=== PATIENT | female | born 1945 | race Caucasian/White ===

== ENCOUNTER → 2019-01-07 11:19 | Outpatient (CLI) | payer MEDICARE, SELFPAY ==
--- NOTE | 2019-01-07 11:44 | XR_ITS ---
XR hip RT 2-3V w/pelvis HISTORY: ITS.REASON: RT HIP PAIN ORDERING PHYSICIAN: Regina Esteves APRN PATIENT AGE: 73 years COMPARISON: None FINDINGS: No fracture or dislocation is evident. There are minimal osteoarthritic changes with minimal osteophyte formation of the acetabulum. IMPRESSION: Minimal osteoarthritic change
--- NOTE | 2019-01-07 11:44 | XR_ITS ---
XR hip LT 2-3V w/pelvis HISTORY: ITS.REASON: LEFT HIP PAIN ORDERING PHYSICIAN: Regina Esteves APRN PATIENT AGE: 73 years COMPARISON: None FINDINGS: There is a left femoral decompression screw present in the bony sideplate. No acute fracture or dislocation. No lytic or blastic change. No significant degenerative change. IMPRESSION: Prior ORIF left hip with gamma nail and proximal femoral sideplate with good alignment and no acute finding
== END ==
PROVIDERS: PCP Nurse Practitioner Family; Visit Provider Nurse Practitioner Family
DX: M25.552 Pain in left hip (principal); M25.551 Pain in right hip
CPT/HCPCS: 73502

== ENCOUNTER → 2019-01-09 13:33 | Outpatient (CLI) | payer MEDICARE, SELFPAY ==
--- NOTE | 2019-01-09 13:35 | MR_ITS ---
MR lumbar spine wo con, MR 3-d myelogram/MRCP HISTORY: LBP. Bilateral leg pain, numbness, and tingling. PT fell [id number] ago. ITS.REASON: LOW BACK PAIN ORDERING PHYSICIAN: Regina Esteves APRN PATIENT AGE: 73 years Comparison: None TECHNIQUE: Standard multiplanar multiecho sequences are performed without contrast. 3-D MIP and myelographic images are also rendered and reviewed FINDINGS: Normal alignment. The spinal cord ends at the L1-L2 level. L1-L2 and L2-L3 show mild degenerative disc disease. L3-L4: Minimal bulging of the disc in the left foraminal region with minimal left foraminal narrowing. L4-5: Minimal concentric bulging disc with minimal central disc protrusion along with mild facet and ligamentum flavum hypertrophy with mild bilateral foraminal narrowing. L5-S1: Mild facet and ligamentum flavum hypertrophy with a small amount fluid in the right facet joint at L5-S1 with minimal bilateral foraminal narrowing. No disc herniation or canal stenosis. IMPRESSION: 1. Mild lumbar spondylosis with mild degenerative changes and minimal bulging discs as described above along with mild facet and ligamentum hypertrophy with mild foraminal narrowing. There is minimal central disc protrusion at L4-L5 2. No disc herniation or canal stenosis
== END ==
LOC: RAD 13:33
PROVIDERS: PCP Nurse Practitioner Family; Visit Provider Nurse Practitioner Family
DX: M54.5 Low back pain (principal); M25.552 Pain in left hip; M25.561 Pain in right knee
CPT/HCPCS: 72148; 76376

== ENCOUNTER 2019-03-13 10:00 | Outpatient (RCR) | payer MEDICARE, SELFPAY | END 2019-03-27 11:27 | disposition home or self-care (01) | LOC: PT.CARL 10:00 | PROVIDERS: PCP Nurse Practitioner Family; Visit Provider Nurse Practitioner Family | DX: M54.5 Low back pain (principal) | CPT/HCPCS: 97012; 97014; 97110; 97140; 97163; G0283 ==

== ENCOUNTER → 2020-12-01 09:21 | Outpatient (CLI) | payer MEDICARE, SELFPAY ==
--- NOTE | 2020-12-01 09:29 | XR_ITS ---
PROCEDURE: XR HIP LT 2-3V W/PELVIS CLINICAL INDICATION: PAIN LT HIP COMPARISON: No exams were available for comparison FINDINGS: There has been placement of a dynamic screw in the left hip with lateral bone plate. No acute fracture. No evidence of dislocation. No significant arthritic change apparent. Multiple pelvic phleboliths and vascular calcification noted IMPRESSION: No acute finding. Dynamic screw present within the left femoral neck Dictated by: Abiodun Burton MD 12/01/2020 10:13 Abiodun Burton MD in [place] 12/01/2020 10:13
== END ==
PROVIDERS: PCP Nurse Practitioner Family; Visit Provider Nurse Practitioner Family
DX: M25.552 Pain in left hip (principal)
CPT/HCPCS: 73502

== ENCOUNTER → 2021-02-11 07:37 | Outpatient (CLI) | payer MEDICARE, SELFPAY ==
[2021-02-11] VITALS (8 sets, daily range): BP systolic 99–120; BP diastolic 51–60; PULSE 56–64; RESP 16–18; TEMP 37.6–37.8; O2SAT 92–95
== END ==
PROVIDERS: PCP Nurse Practitioner Family; Visit Provider Nurse Practitioner Family
DX: U07.1 COVID-19 (principal)
CPT/HCPCS: 96365

== ENCOUNTER 2023-07-31 12:30 | Outpatient (CLI) | payer MEDICARE, SELFPAY ==
--- NOTE | 2023-07-31 | CA_ITS ---
FINAL REPORT TECHNIQUE: Compression dillard scale and Doppler evaluation CLINICAL HISTORY: Left leg pain and edema, no known trauma, hx of left hip surgery 1992, HTN, obesity. COMPARISON: None FINDINGS: Femoral and popliteal veins show normal compressibility and flow. Visualized portion of the calf veins are patent by Doppler exam. IMPRESSION: No evidence of left lower extremity deep venous thrombosis Reviewed, Interpreted and Dictated by Errol Finch MD Transcribed by Yolanda Tolbert Authenticated and . [facility]
== END 2023-07-31 23:59 ==
PROVIDERS: PCP Nurse Practitioner Family; Visit Provider Nurse Practitioner Family
DX: M79.605 Pain in left leg (principal)
CPT/HCPCS: 93971

== ENCOUNTER 2023-11-16 08:07 | Outpatient (CLI) | payer MEDICARE, SELFPAY ==
--- NOTE | 2023-11-16 08:09 | CA_ITS ---
FINAL REPORT TECHNIQUE: Color Doppler, duplex Doppler and compression sonography of the left lower extremity deep venous systems was performed. CLINICAL HISTORY: PAIN/REDNESS LLE,HX CELLULITIS,THROMBOPHELBITIS,NKI FINDINGS: There is no evidence of deep venous thrombosis from the level of the groin to the calf. The veins are patent and compressible. IMPRESSION: No evidence of deep venous thrombosis left lower extremity. Reviewed, Interpreted and Dictated by Davin Quintanilla III, MD Transcribed by Vee Rojas Authenticated and [facility]
== END 2023-11-16 23:59 | disposition home or self-care (01) ==
LOC: RT 08:07
PROVIDERS: PCP Nurse Practitioner Family; Visit Provider Nurse Practitioner Family
DX: M79.605 Pain in left leg (principal); I80.3 Phlebitis and thrombophlebitis of lower extremities, unspecified
CPT/HCPCS: 93971

== ENCOUNTER 2025-05-16 07:54 | Outpatient (CLI) | payer MEDICARE, SELFPAY ==
--- NOTE | 2025-05-16 07:57 | MR_ITS ---
FINAL REPORT TECHNIQUE: Multiplanar MR without gadolinium enhancement CLINICAL HISTORY: BACK PAIN AFFECTING RLE (LT HIP HARDWARE). RIGHT HIP PAIN. RIGHT LEG PAIN, NUMBNESS AND TINGLING. NO INJURY OR TRAUMA COMPARISON: 01/09/2019 FINDINGS: Sagittal images show normal vertebral height. Alignment is normal. There is a hemangioma in the L2 vertebral body. T12-L1: Unremarkable L1-2: A minimal annular bulge is present without central canal stenosis. L2-3: A minimal annular bulge is present without central canal stenosis. L3-4: A mild annular bulge is present along with facet arthropathy. L4-5: A mild annular bulge is present with facet arthropathy, ligamentum flavum hypertrophy, mild central canal stenosis and mild bilateral neural foraminal narrowing. These findings are worse than seen on the prior exam. L5-S1: There is a mild annular bulge with moderate facet arthropathy, mild bilateral right greater than left neural foraminal narrowing, worse than seen on the prior exam. IMPRESSION: Degenerative change most pronounced in the lower lumbar spine, with the L4-5 and L5-S1 levels demonstrating worsening degenerative change when compared to the prior exam of 2019. Reviewed, Interpreted and Dictated by Errol Finch MD Transcribed by Aleyda Olivera Authenticated and [facility]
--- OUTSIDE RECORDS SUMMARY | 2025-05-16 07:57 | XMS_ITS | Continuity of Care Document ---
Author Organization [place] - [facility]., [facility] Address [address] [place] [phone] Assessment Encounter Date Assessment Date Assessment LastModified by Organization Details LastModified Time 04/25/2025 04/25/2025 Santa Oropeza presented for follow-up of peripheral vascular disease with persistent bilateral leg swelling (left worse than right) despite spironolactone 50mg, which replaced hydrochlorothiazide due to declining kidney function. She also reported right ear eczema with itching and crusting. Medical history includes hypertension and diabetes mellitus (A1c 6.1). Treatment plan included continuing spironolactone, adding furosemide 20mg PRN for swelling, using compression stockings, prescribing triamcinolone cream for ears, and recommending Centrum Silver Women's daily. Metoprolol was continued at the reduced dose. Not available 04/25/2025 18:09:58 Plan of Treatment Reminders Order Date Submit Date Provider Last Modified By Organization Details Last Modified Time Details Appointments ANNUAL EXAM 2025 09:00A Christiano York APRN Not available Not available Not available Lab None recorded. Referral None recorded. Procedures None recorded. Surgeries None recorded. Imaging None recorded. Medication Orders furosemid e 20 mg tablet 2024 [facility], [address] [place] [address], [id number], 04/25/2025 11:58:02 triamcino lone acetonide 0.1 % topical cream 2024 [facility], [address] [place] [address], [id number], 04/25/2025 13:23:31 Patient TargetsNo targets recorded. Patient InstructionsNo instructions recorded. Reason for Referral None Reported. Problems Name Problem SNOMED Code Status Onset Date Resolution Date Notes Provider Name and Address Organization Details Recorded Time Hyperten sive disorder 61184645 Completed 201609/22/2016 Problem Code: I10; Problem Code Type: ICD-10; Not Available [facility] 22:26:22 Benign essentia l hyperten giovanna 9093946 Active 2016 Problem Code: 401.1; Problem Code Type: ICD-9; Not Available [facility] 22:26:29 Vitamin B deficien cy 69235467 Active 2016 Problem Code: E53.9; Problem Code Type: ICD-10; Not Available [facility] 22:26:22 Vitamin D deficien cy 42764544 Active 2016 Problem Code: E55.9; Problem Code Type: ICD-10; Not Available [facility] 22:26:22 Moderate major depressi on, single episode 03045846 Completed 201606/12/2018 Problem Code: F32.1; Problem Code Type: ICD-10; Not Available [facility] 22:26:22 Moderate recurren t major depressi on 73940522 Active 2016 Problem Code: F33.1; Problem Code Type: ICD-10; Not Available [facility] 22:26:22 Mixed urinary incontin ence 449295747 Completed 201604/08/2017 Problem Code: N39.46; Problem Code Type: ICD-10; Not Available [facility] 22:26:24 Localize d edema 955516364 Completed 201602/21/2017 Problem Code: R60.0; Problem Code Type: ICD-10; Not Available [facility] 22:26:25 Depressi ve disorder 89908043 Active 2016 Problem Code: 311; Problem Code Type: ICD-9; Not Available [facility] 2 22:26:28 Edema 241288998 Completed 201602/21/2017 Problem Code: 782.3; Problem Code Type: ICD-9; Not Available [facility] 2 22:26:29 Dysthymi a 95121116 Completed 201608/15/2019 Problem Code: R53.81; Problem Code Type: ICD-10; Not Available [facility] 22:26:24 Acute bronchit is 76002818 Completed 201711/20/2017 Problem Code: J20.9; Problem Code Type: ICD-10; Not Available [facility] 22:26:23 Cough 67604696 Completed 201710/05/2017 Problem Code: R05; Problem Code Type: ICD-10; Not Available [facility] 22:26:29 Acute sinusiti s 52396770 Completed 201710/16/2017 Problem Code: J01.90; Problem Code Type: ICD-10; Not Available [facility] 22:26:23 Allergic rhinitis caused by pollen 45986454 Completed 201702/20/2018 Problem Code: J30.1; Problem Code Type: ICD-10; Not Available [facility] 22:26:23 Heartbur n 40629162 Completed 201701/05/2018 Problem Code: R12; Problem Code Type: ICD-10; Not Available [facility] 22:26:24 Mixed hyperlip idemia 578709194 Active 2017 Problem Code: E78.2; Problem Code Type: ICD-10; Not Available [facility] 22:26:22 Hyperten sive disorder 37749553 Active 2017 Problem Code: I10; Problem Code Type: ICD-10; Not Available [facility] 22:26:23 Mixed urinary incontin ence 258992037 Completed 201708/11/2018 Problem Code: N39.46; Problem Code Type: ICD-10; Not Available [facility] 09/05/202 2 22:26:28 Gastroes ophageal reflux disease without esophagi tis 330632726 Active 2018 Not Available [facility] 2 22:26:23 Pain of left hip joint 68008101339 9100 Completed 201808/15/2019 Problem Code: M25.552; Problem Code Type: ICD-10; Not Available [facility] 2 22:26:23 Low back pain 076779894 Completed 201808/15/2019 Problem Code: M54.5; Problem Code Type: ICD-10; Jacquelin York APRN [address] [place], [address] , [employer] 5 14:47:30 Idiopath ic osteoart hritis 592033371 Active 2018 Problem Code: M16.11; Problem Code Type: ICD-10; Not Available [facility] 2 22:26:23 Influenz a vaccine needed 78643824428 06 Completed 201912/27/2021 Problem Code: Z23; Problem Code Type: ICD-10; ARACELY enriquez, [employer] 3 11:24:26 Body mass index 30+ - obesity 769699180 Completed 201912/27/2021 Problem Code: Z68.36; Problem Code Type: ICD-10; Not Available [facility] 2 22:26:27 Hypergly cemia 60594149 Active 2019 Problem Code: R73.9; Problem Code Type: ICD-10; Not Available [facility] 2 22:26:25 Prediabe harpreet 129238393 Active 2019 Problem Code: R73.03; Problem Code Type: ICD-10; Jacquelin York APRN [address] [place], [address] , [employer]. 5 10:48:42 Trochant mayur bursitis of left hip 50000266689 9103 Completed 202012/27/2021 Not Available [facility] 2 22:26:24 General examinat ion of patient Active 2020 Not Available [facility] 22:26:26 Body mass index 30+ - obesity 449460239 Active 2020 Problem Code: Z68.36; Problem Code Type: ICD-10; Not Available [facility] 22:26:27 Acute left otitis media 710410144 Active 2024 Jacquelin York APRN [address] [place] [address], [phone] , [employer] 17:43:39 Acute otitis externa 40906538 Active 2024 Jacquelin York APRN [address] [place] [address], [address] , [employer] 17:43:47 Peripher al vascular disease 776993142 Active 2024 Jacquelin York APRN [address] [place] [address], [address] , [employer] 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 17:02:20 Low back pain 495450780 Active 2024 Problem Code: M54.5; Problem Code Type: ICD-10; Jacquelin York APRN [address] [place] [address], [phone] , [employer] 14:47:30 Notes:Some problems listed i n Document: #[id number] could not be added to this patient's chart. Please review this document and add these problems to the patient's chart manually as needed. Problem Notes None recorded. Procedures Surgical History Date Name Laterality Status Provider Name and Address Organization Details Recorded Time 3 I&D completed Jacquelin York APRN [address] [facility], [place], [address], [facility] [employer] 08/19/2022 11:49:50 2 cataract surgery completed Not Available [facility] 03/08/2022 22:56:11 Imaging Results None recorded. Procedure Notes None recorded. Medical Equipment None Reported. Allergies No known drug allergies Medications Name Sig Start Date Stop Date Status Note LastModified by Organization Details LastModified Time amoxicillin 500 mg capsule TAKE ONE CAPSULE BY MOUTH every EIGHT hours FOR SEVEN DAYS FOR ear infection 01/22 completed Not Available Not Available Not Available promethazin e-DM 6.25 mg-15 mg/5 mL oral syrup take 5 mls by mouth every 6 hours as needed 03/15 completed Not Available Not Available Not Available neomycin-po lymyxin-hyd rocort 3.5 mg/mL-10,00 0 unit/mL-1 % ear solution INSTILL 4 DROPS INTO AFFECTED EAR(S) BY OTIC ROUTE 3 TIMES PER DAY 01/22 completed Not Available Not Available Not Available Depo-Medrol 40 mg/mL suspension for injection Take 1 mL by injection route. 05/12 completed Not Available Not Available Not Available citalopram 40 mg tablet TAKE 1 TABLET BY MOUTH ONCE DAILY 02/01 completed Not Available Not Available Not Available cetirizine 10 mg tablet Take 1 tablet(s) by mouth daily 02/20 completed Not Available Not Available Not Available oxybutynin chloride ER 10 mg tablet,exte nded release 24 hr Take 1 tablet every day by oral route. 2024 active Not Available Not Available Not Avai lable tizanidine 4 mg tablet 1 po q hs 05/04 completed Not Available Not Available Not Available metoprolol succinate ER 50 mg tablet,exte nded release 24 hr TAKE 1 TABLET BY MOUTH DAILY 2024 active Not Available Not Available Not Avai lable hydrocodone 5 mg-acetamin ophen 325 mg tablet TAKE 1 TABLET BY MOUTH every 8 hours NEEDED FOR SEVERE pain 05/12 completed Not Available Not Available Not Available meloxicam 15 mg tablet TAKE 1 TABLET BY MOUTH EVERY DAY NEEDED FOR sciatica active Not Available Not Available No t Available Paxil 20 mg tablet Take 1 tablet(s) by mouth daily 02/16 completed Not Available Not Available Not Available Medrol (Gallo) 4 mg tablets in a dose pack take by oral route as directed per package instructi ons 2024 active Not Available Not Available Not Avai lable Aplisol 5 tub. unit/0.1 mL intradermal injection solution Inject 0.1 mL by intraderm al route. 11/19 completed Not Available Not Available Not Available metoprolol succinate ER 100 mg tablet,exte nded release 24 hr Take 1 tablet every day by oral route. 01/22 completed Not Available Not Available Not Available valsartan 80 mg tablet TAKE 1 TABLET BY MOUTH DAILY 08/20 completed Not Available Not Available Not Available dextrometho rphan-guaif enesin 10 mg-100 mg/5 mL oral syrup Take 1 teaspoon by mouth q4h prn for cough 10/02 completed Not Available Not Available Not Available sulfamethox azole 800 mg-trimetho prim 160 mg tablet TAKE 1 TABLET EVERY 12 HOURS FOR 10 DAYS 01/23 completed Not Available Not Available Not Available omeprazole 40 mg capsule,del ayed release TAKE 1 CAPSULE BY MOUTH ONCE DAILY BEFORE A MEAL 2024 active Not Available Not Available Not Avai lable metoprolol tartrate 50 mg-hydrochl orothiazide 25 mg tablet 1/2 tablet daily 07/01 completed Not Available Not Available Not Available triamcinolo ne acetonide 0.1 % topical cream APPLY A THIN LAYER TO AFFECTED AREA(S) TOPICALLY TWICE DAILY 2024 active Not Available Not Available Not Avai lable Kenalog 40 mg/mL suspension for injection Take 1 mL by injection route. 03/15 completed Not Available Not Available Not Available Tessalon Perles 100 mg capsule Take 1 capsule(s ) by mouth tid 12/01 completed Not Available Not Available Not Available metoprolol tartrate 100 mg-hydrochl orothiazide 25 mg tablet TAKE ONE-HALF TABLET BY MOUTH DAILY 07/28 completed Not Available Not Available Not Available citalopram 20 mg tablet take 1 tablet (20 mg) by oral route once daily 08/07 completed Not Available Not Available Not Available prednisolon e acetate 1 % eye drops,suspe nsion INSTILL 1 DROP INTO LEFT EYE EVERY 8 HOURS FOR 7 DAYS 06/28 completed Not Available Not Available Not Available doxycycline monohydrate 100 mg capsule take 1 capsule (100 mg) by oral route 2 times per day 06/11 completed Not Available Not Available Not Available hydrocodone 7.5 mg-acetamin ophen 325 mg tablet Take 1 tablet every 6 hours by oral route as needed, for sciatica. 2024 active Not Available Not Available Not Avai lable cephalexin 500 mg capsule Take 1 capsule every 6 hours by oral route for 10 days, for LEG celluliti s. 02/12 completed Not Available Not Available Not Available Cipro 500 mg tablet Take 1 tablet(s) by mouth q12h for 10 days 03/19 completed Not Available Not Available Not Available ranitidine 150 mg tablet 1 po qhs 07/20 completed Not Available Not Available Not Available dexamethaso ne 4 mg tablet take 1 tablet (4 mg) by oral route once daily 06/11 completed Not Available Not Available Not Available omeprazole 20 mg capsule,del ayed release one capsule po daily as needed 01/04 completed Not Available Not Available Not Available diclofenac sodium 75 mg tablet,carrie yed release take 1 tablet (75 mg) by oral route 2 times per day, take as needed 08/07 completed Not Available Not Available Not Available hydrochloro thiazide 25 mg tablet Take 1 tablet every day by oral route. 08/20 completed Not Available Not Available Not Available furosemide 20 mg tablet TAKE 1 TABLET BY MOUTH EVERY DAY IN THE MORNING NEEDED for leg swelling active Not Available Not Available No t Available ibuprofen 600 mg tablet 11/05 completed Not Available Not Available Not Available oxybutynin chloride 5 mg tablet TAKE 1 TABLET BY MOUTH TWICE DAILY 07/28 completed Not Available Not Available Not Available ondansetron 4 mg disintegrat ing tablet place 1 tablet (4 mg) and place on top of the tongue where it will dissolve, then swallow by transling ual route every 6 hours prn N/V 06/11 completed Not Available Not Available Not Available cefdinir 300 mg capsule 2 capsules po after the evening meal, once a day 10/02 completed Not Available Not Available Not Available loratadine 10 mg tablet Take 1 tablet every day by oral route as needed. 2023 active Not Available Not Available Not Avai lable spironolact one 50 mg tablet Take 1 tablet every day by oral route in the morning, for BP and swelling. 2024 active Not Available Not Available Not Avai lable amoxicillin 875 mg-potassiu m clavulanate 125 mg tablet TAKE ONE TABLET BY MOUTH TWICE DAILY with meals FOR 10 DAYS 03/15 completed Not Available Not Available Not Available valsartan 160 mg tablet Take 1 tablet every day by oral route in the morning, for BP. 2024 active Not Available Not Available Not Avai lable neomycin-po lymyxin-hyd rocort 3.5 mg-10,000 unit/mL-1 % ear drops,susp INSTILL 4 DROPS INTO AFFECTED EAR(S) BY OTIC ROUTE 3 TIMES PER DAY 01/22 completed Not Available Not Available Not Available valsartan 160 mg-hydrochl orothiazide 25 mg tablet Take 1 tablet every day by oral route. 11/19 completed Not Available Not Available Not Available valsartan 40 mg tablet TAKE 1 TABLET BY MOUTH DAILY 07/28 completed Not Available Not Available Not Available cyclobenzap rine 5 mg tablet TAKE 1 TABLET BY MOUTH 3 TIMES DAILY NEEDED FOR back pain active Not Available Not Available No t Available bupropion HCl XL 150 mg 24 hr tablet, extended release Take 1 tablet every day by oral route. 2024 active Not Available Not Available Not Avai lable cholecalcif braeden (vitamin D3) 1,250 mcg (50,000 unit) capsule Take 1 capsule(s ) by mouth q week 01/08 completed Not Available Not Available Not Available diclofenac 1 % topical gel apply 2 grams to the left hip by topical route 4 times per day prn pain 2020 active Not Available Not Available Not Avai charlene Dialyvite Vitamin D3 Max 1,250 mcg (50,000 unit) tablet one po weekly 06/11 completed Not Available Not Available Not Available Contrave 8 mg-90 mg tablet,exte nded release one po q day for 7 days, then 1 po bid for 7 days, then 2 in the a.m. and 1 in the p.m. for 7 days then 2 po bid 09/16 completed Not Available Not Available Not Available Paxlovid 300 mg (150 mg x 2)-100 mg tablets in a dose pack Take 1 dose pk by oral route as directed for 5 days. 07/28 completed Not Available Not Available Not Available Vitals Date Recorded Body height Body mass index (BMI) Body weight Body temperature Heart rate Oxygen saturation Oxygen saturation in Arterial blood by Pulse oximetry Systolic And Diastolic Provider Name and Address Organization Details Last Updated DateTime 5 157.48 cm 36.5 kg/m2 42254.0 4 g 97.2 [degF] 54 /min 94 % 94 % 131/52 mm[Hg] ARACELY HESS [facility]. 5 11:21:28 Social History Question Answer Notes LastModified by Organizat ion Details LastModified Time Tobacco Smoking Status Never Smoker SocialHis toryQuest ion: 'Tobacco/ Alcohol/S upplement s'; SocialHis toryRespo nse: 'Never Smoker'; Not Available [facility] 03/08/2022 22:59:32 Do You Have An Advance Directive? No Information not available 01/23/2023 Is Your Home Air Conditioned? Yes Information not available 01/23/2023 Are You Blind Or Do You Have Difficulty Seeing? No Information not available 01/23/2023 In The 14 Days Before Symptom Onset, Have You Had Close Contact With A Laboratory-confir [facility] COVID-19 While That Case Was Ill? No Information not available 01/23/2023 In The 14 Days Before Symptom Onset, Have You Had Close Contact With A Person Who Is Under Investigation For COVID-19 While That Person Was Ill? No Information not available 01/23/2023 Have You Been To An Area Known To Be High Risk For COVID-19? No Information not available 01/23/2023 Are You Deaf Or Do You Have Serious Difficulty Hearing? No Information not available 01/23/2023 What Type Of Diet Are You Following? REGULAR Information not available 01/23/2023 Are There Any Guns Present In Your Home? No Information not available 01/23/2023 Do You Have A Medical Power Of Supervisor [place] [employer]? No Information not available 01/23/2023 What Was The Date Of Your Most Recent Tobacco Screening? 05/12/2025 Information not available 05/12/2025 Do You Use Your Seat Belt Or Car Seat Routinely? Yes Information not available 01/23/2023 Do You Have Smoke And Carbon Monoxide Detectors In Your Home? Yes Information not available 01/23/2023 Are You Passively Exposed To Smoke? No Information no t available 01/23/2023 Are There Any Smokers In Your House? No Information not available 01/23/2023 Do You Use Sunscreen Routinely? No Information not available 01/23/2023 Has Tobacco Cessation Counseling Been Provided? No Information not available 01/23/2023 Have You Recently Traveled Abroad? No Information not available 01/23/2023 Do You Have Difficulty Walking Or Climbing Stairs? No Information not available 01/23/2023 Do You Have Any Dietary Restrictions? No Information not available 01/23/2023 Sex: Unknown Functional Status Question Answer Note LastModified by Organizat ion Details LastModified Time Do you use any illicit or recreational drugs? No Information not available 01/23/2023 Do you or have you ever used any other forms of tobacco or nicotine? No Information not available 07/28/2023 What is your level of alcohol consumption? None Information not available 01/23/2023 Are you currently employed? No Information not available 01/23/2023 Do you have transportation difficulties? No Information not available 01/23/2023 Do you have difficulty doing errands alone? No Information not available 01/23/2023 Are you able to care for yourself independently? Yes Information not available 01/23/2023 Do you have difficulty dressing, bathing, grooming, or toileting? No Information not available 01/23/2023 Mental Status Question Answer Note LastModified by Organization D etails LastModified Time Do you have difficulty concentrating, remembering or making decisions? No Information no t available 01/23/2023 Family History Relationship Description Onset Age of this Age Resolved Age Notes LastModified by Organization Details LastModified Time Unspecified Relation Family history of malignant neoplasm Relati ve: ''; [email or web address] Not available 03/08/2022 23:01:13 Unspecified Relation Family history of Myocardial infarction Relati ve: ''; [email or web address] Not available 03/08/2022 23:01:13 Unspecified Relation Family history of diabetes mellitus type 2 Relati ve: ''; [email or web address] Not available 03/08/2022 23:01:13 Unspecified Relation Family history of seizure disorder Relati ve: ''; [email or web address] Not available 03/08/2022 23:01:13 Notes:*Procedure Description : Documented family medical history in mother*Relative: Mother *Procedure Description: Documented family medical history in father*Relative: Father *Procedure Description: Documented family medical history in sister*Relative: Sister Medical History Condition Response Acid Reflux (GERD) Y Hypertension Y Gynecological History Statement/Question Response Date of Last Pap Smear Most Recent Mammogram Obstetrics History GPAL:G 0 P 0 0 0 0 Immunizations Vaccine Type Date Status Note Provider Nam e and Address Organization Details Recorded Time zoster recombinant 4 completed Jacquelin York APRN [address] [place] [address], [place], [address], [facility] [employer] 07/30/2023 16:11:26 Influenza, split virus, quadrivalent, PF 9 completed Not Available [employer] 03/08/2022 23:27:31 COVID-19 vaccine, vector-nr, rS-Ad26, PF, 0.5 mL 1 completed ARACELY MYNEAR null, [employer] 08/19/2022 11:00:01 pneumococcal polysaccharide PPV23 0 completed Not Available [facility] 03/08/2022 23:27:35 Influenza, split virus, quadrivalent, preservative 0 completed Not Available [facility] 03/08/2022 23:27:36 zoster recombinant 4 completed Jacquelin York APRN [address] [place] [address], [phone], [employer] 02/18/2024 14:54:52 Influenza, high-dose, trivalent, PF 5 completed Jacquelin York APRN [address] [place] [address], [phone], [employer] 08/20/2024 12:30:49 Influenza, split virus, quadrivalent, PF 1 completed ARACELY MYNEAR null, [employer] 08/19/2022 11:00:01 Influenza, split virus, quadrivalent, PF 2 completed ARACELY MYNEAR null, [employer] 08/19/2022 11:00:01 Influenza, split virus, quadrivalent, PF 3 completed Not Available [facility] 05/12/2025 14:26:10 Influenza, split virus, trivalent, PF 5 completed Not Available [facility] 05/12/2025 14:26:10 Past Encounters Encounter ID Performer Location Encounter Start Date Encounter Closed Date Diagnosis/Indication Diagnosis SNOMED-CT Code Diagnosis ICD10 Code Diagnosis IMO Codes Diagnosis Note [id number] Jacquelin York [address] [address] 04/25/2025 10:57:53 04/25/2025 11:53:46 Peripheral vascular disease 791682493 I73.9 18494 Eczema of external auditory canal 03269434 H60.542 [id number] Health Concerns Section Related Observation LastModified by Organization Detai ls LastModified Time None Recorded Concern Status LastModified by Organization Details LastModified Time None Recorded Payers Encounter Date Sequence Insurance Name Policy Number Policy Hutchins Covered Member ID Hutchins Member ID Guarantor Name 04/25/2025 1 [place] Santa Oropeza [id number] Santa Oropeza 04/25/2025 2 [employer] (MEDICARE SUPPLEMENT) Santa Oropeza [id number] Santa Oropeza Notes Date Note Type Note Provider Name and Address Organization Details Recorded Time text/html ROS as noted in the HPI Chief ComplaintLeg swelling, ear itching and crustingHistory of Present IllnessSanta Oropeza presents for follow-up of peripheral vascular disease with ongoing leg swelling. She reports that her legs continue to swell, with the left leg remaining worse than the right leg. The swelling is described as tender and tight, though she notes it does not occur all the time. She has been taking spironolactone 50 milligrams as prescribed after being switched from hydrochlorothiazide due to decreasing kidney function, but feels the spironolactone is not adequately managing her swelling.Additionally, she reports chronic issues with left ear that stay scaly all the time and itch. She describes this as an ongoing problem.The patient confirms she has been adherent to her spironolactone regimen and has compression socks available that she obtained previously, describing them as easy to get on and warmer to wear. She received her flu shot as scheduled. Jacquelin York APRN [address] [facility], [place], [address], [employer] 04/25/2025 18:10:58 OBGyn Episode No OBEpisode recorded.
--- OUTSIDE RECORDS SUMMARY | 2025-05-16 07:57 | XMS_ITS | Continuity of Care Document ---
Author Organization [facility] Grid20/20, [facility] Address [address] [place] [phone] Assessment No assessment recorded. Plan of Treatment Reminders Order Date Submit Date Provider Last Modified By Organization Details Last Modified Time Details Appointments ANNUAL EXAM 2025 09:00A M Gina York APRN Not available Not available Not available Lab None recorded. Referral None recorded. Procedures None recorded. Surgeries None recorded. Imaging MRI, lumbar spine, w/o contrast 2024 [facility] ([facility] [address], [place], [address], 05/16/2025 04:21:52 Medication Orders Medrol (Gallo) 4 mg tablets in a dose pack 2024 025 [facility], [address] [place] [address], [id number], 05/12/2025 15:25:21 hydrocodo ne 7.5 mg-acetam inophen 325 mg tablet 2024 025 [facility], [address] [place] [address], [id number], 05/12/2025 15:25:22 Patient TargetsNo targets recorded. Patient InstructionsNo instructions recorded. Reason for Referral None Reported. Problems Name Problem SNOMED Code Status Onset Date Resolution Date Notes Provider Name and Address Organization Details Recorded Time Hyperten sive disorder 36360437 Completed 201609/22/2016 Problem Code: I10; Problem Code Type: ICD-10; Not Available [facility] 2 22:26:22 Benign essentia l hyperten giovanna 5697565 Active 2016 Problem Code: 401.1; Problem Code Type: ICD-9; Not Available [facility] 2 22:26:29 Vitamin B deficien cy 62543299 Active 2016 Problem Code: E53.9; Problem Code Type: ICD-10; Not Available [facility] 2 22:26:22 Vitamin D deficien cy 90091670 Active 2016 Problem Code: E55.9; Problem Code Type: ICD-10; Not Available [facility] 22:26:22 Moderate major depressi on, single episode 80066511 Completed 201606/12/2018 Problem Code: F32.1; Problem Code Type: ICD-10; Not Available [facility] 2 22:26:22 Moderate recurren t major depressi on 26356764 Active 2016 Problem Code: F33.1; Problem Code Type: ICD-10; Not Available [facility] 22:26:22 Mixed urinary incontin ence 952299465 Completed 201604/08/2017 Problem Code: N39.46; Problem Code Type: ICD-10; Not Available [facility] 2 22:26:24 Localize d edema 144676530 Completed 201602/21/2017 Problem Code: R60.0; Problem Code Type: ICD-10; Not Available [facility] 22:26:25 Depressi ve disorder 47702868 Active 2016 Problem Code: 311; Problem Code Type: ICD-9; Not Available [facility] 22:26:28 Edema 172337192 Completed 201602/21/2017 Problem Code: 782.3; Problem Code Type: ICD-9; Not Available [facility] 2 22:26:29 Dysthymi a 27901206 Completed 201608/15/2019 Problem Code: R53.81; Problem Code Type: ICD-10; Not Available [facility] 2 22:26:24 Acute bronchit is 09109176 Completed 201711/20/2017 Problem Code: J20.9; Problem Code Type: ICD-10; Not Available [facility] 2 22:26:23 Cough 11269786 Completed 201710/05/2017 Problem Code: R05; Problem Code Type: ICD-10; Not Available [facility] 2 22:26:29 Acute sinusiti s 92809824 Completed 201710/16/2017 Problem Code: J01.90; Problem Code Type: ICD-10; Not Available [facility] 2 22:26:23 Allergic rhinitis caused by pollen 82792284 Completed 201702/20/2018 Problem Code: J30.1; Problem Code Type: ICD-10; Not Available [facility] 2 22:26:23 Heartbur n 15567444 Completed 201701/05/2018 Problem Code: R12; Problem Code Type: ICD-10; Not Available [facility] 2 22:26:24 Mixed hyperlip idemia 856258335 Active 2017 Problem Code: E78.2; Problem Code Type: ICD-10; Not Available [facility] 2 22:26:22 Hyperten sive disorder 98435602 Active 2017 Problem Code: I10; Problem Code Type: ICD-10; Not Available [facility] 2 22:26:23 Mixed urinary incontin ence 879333513 Completed 201708/11/2018 Problem Code: N39.46; Problem Code Type: ICD-10; Not Available [facility] 2 22:26:28 Gastroes ophageal reflux disease without esophagi tis 933118291 Active 2018 Not Available [facility] 2 22:26:23 Pain of left hip joint 35782855576 9100 Completed 201808/15/2019 Problem Code: M25.552; Problem Code Type: ICD-10; Not Available [facility] 2 22:26:23 Low back pain 811496106 Completed 201808/15/2019 Problem Code: M54.5; Problem Code Type: ICD-10; Jacquelin York APRN [address] [place], [address] , [employer]. 5 14:47:30 Idiopath ic osteoart hritis 968484207 Active 2018 Problem Code: M16.11; Problem Code Type: ICD-10; Not Available [facility] 2 22:26:23 Influenz a vaccine needed 09889735228 06 Completed 201912/27/2021 Problem Code: Z23; Problem Code Type: ICD-10; ARACELY enriquez, [employer]. 3 11:24:26 Body mass index 30+ - obesity 308597231 Completed 201912/27/2021 Problem Code: Z68.36; Problem Code Type: ICD-10; Not Available [facility] 2 22:26:27 Hypergly cemia 25900765 Active 2019 Problem Code: R73.9; Problem Code Type: ICD-10; Not Available [facility] 2 22:26:25 Prediabe harpreet 281880385 Active 2019 Problem Code: R73.03; Problem Code Type: ICD-10; Jacquelin York APRN [address] [place], [address] , [employer] 5 10:48:42 Trochant mayur bursitis of left hip 19559881639 9103 Completed 202012/27/2021 Not Available [facility] 2 22:26:24 General examinat ion of patient Active 2020 Not Available [facility] 2 22:26:26 Body mass index 30+ - obesity 575414333 Active 2020 Problem Code: Z68.36; Problem Code Type: ICD-10; Not Available [facility] 2 22:26:27 Acute left otitis media 548344952 Active 2024 Jacquelin York APRN [address] [place] [address], [address] , [employer] 17:43:39 Acute otitis externa 69173170 Active 2024 Jacquelin Jaylen SEE [address] [place] [address], [address] , [employer] 17:43:47 Peripher al vascular disease 230519601 Active 2024 Jacquelinantony York APRN [address] [place] [address], [address] , [employer] 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 11:37:29 Disorder of right sciatic nerve 56805322924 9102 Active 2024 Jacquelin York APRN [address] [place] [address], [address] , [employer] 17:02:20 Low back pain 192592221 Active 2024 Problem Code: M54.5; Problem Code Type: ICD-10; Jacquelin Jaylen BUSINESS OFFICE ASSOCIATE [address] [place] [address], [address] , [employer] 14:47:30 Notes:Some problems listed i n Document: #[id number] could not be added to this patient's chart. Please review this document and add these problems to the patient's chart manually as needed. Problem Notes None recorded. Procedures Surgical History Date Name Laterality Status Provider Name and Address Organization Details Recorded Time 3 I&D completed Jacquelin SEE York [address] [place] [address], [address], [employer] 08/19/2022 11:49:50 2 cataract surgery completed Not Available [facility] 03/08/2022 22:56:11 Imaging Results None recorded. Procedure [...] Available Not Available diclofenac sodium 75 mg tablet,crarie yed release take 1 tablet (75 mg) [...] Not Available Not Available Not Avai lable Dialyvite Vitamin D3 Max 1,250 mcg (50,000 [...] blood by Pulse oximetry Systolic And Diastolic Systolic And Diastolic Systolic And Diastolic Provider Name and Address Organization Details Last Updated DateTime 5 157.48 cm 36.6 kg/m2 06762.4 7 g 97.9 [degF] 52 /min 93 % 93 % 161/51 mm[Hg] 154/79 mm[Hg] 132/74 mm[Hg] ARACELY [facility] [employer] 5 14:41:50 Social History Question Answer Notes LastModified by Organizat ion Details LastModified Time Tobacco Smoking Status Never Smoker SocialHis torantonyQuest ion: 'Tobacco/ Alcohol/S upplement s'; SocialHis Amira nse: 'Never Smoker'; Not Available [facility] 03/08/2022 22:59:32 Do You Have An Advance Directive? No Information not available 01/23/2023 Is Your Home Air Conditioned? Yes Information not available 01/23/2023 Are You Blind Or Do You Have Difficulty Seeing? No Information not available 01/23/2023 In The 14 Days Before Symptom Onset, Have You Had Close Contact With A Laboratory-confir med COVID-19 While That Case Was Ill? No [...] Do You Have A Medical Power Of Project Architect? No Information not available 01/23/2023 What Was [...] Recorded Time zoster recombinant 4 completed Jacquelin York, SEE [address] [place], [address], [employer], [email or web address] 07/30/2023 16:11:26 Influenza, split virus, quadrivalent, PF 9 completed Not Available [facility] 03/08/2022 23:27:31 COVID-19 vaccine, vector-nr, rS-Ad26, PF, 0.5 mL 1 completed ARACELY enriquez, [employer] 08/19/2022 11:00:01 pneumococcal polysaccharide PPV23 0 completed Not Available [facility] 03/08/2022 23:27:35 Influenza, split virus, quadrivalent, preservative 0 completed Not Available [facility] 03/08/2022 23:27:36 zoster recombinant 4 completed Jacquelin York APRN [address] [place], [address], [employer] 02/18/2024 14:54:52 Influenza, high-dose, trivalent, PF 5 completed Jacquelin York APRN [address] [place], [address], [employer] 08/20/2024 12:30:49 Influenza, split virus, quadrivalent, PF 1 completed ARACELY WATTERSNEAR null, [employer] 08/19/2022 11:00:01 Influenza, split virus, quadrivalent, PF 2 completed ARACELY MYNEAR null, [employer] 08/19/2022 11:00:01 Influenza, split virus, quadrivalent, PF 3 completed Not Available [facility] 05/12/2025 14:26:10 Influenza, split virus, trivalent, PF 5 completed Not Available [facility] 05/12/2025 14:26:10 Past Encounters Encounter ID Performer Location Encounter Start Date Encounter Closed Date Diagnosis/Indication Diagnosis SNOMED-CT Code Diagnosis ICD10 Code Diagnosis IMO Codes Diagnosis Note [id number] Jacquelin York [place] [phone] 04/25/2025 10:57:53 04/25/2025 11:53:46 Peripheral vascular disease 786283526 I73.9 44318 Eczema of external auditory canal 47758475 H60.542 53255958 [id number] Jacquelin York [place] [phone] 05/07/2025 16:32:49 05/07/2025 17:20:13 Disorder of right sciatic nerve 0210488444 29327 M54.31 [id number] Santa Oropeza presented with severe right lower back pain radiating to the side that began Monday, worsened Monday, and continued to progress. The pain disrupted sleep for two nights and was unresponsi ve to ibuprofen. Assessment revealed likely L4 disc pathology with radiculopa thy. Treatment included steroid injection, daily anti-infla mmatory medication (discontin uing ibuprofen) , muscle relaxant TID, Lortab for breakthrou gh pain, cold packs, and activity modificati on. Follow-up recommende d if no improvemen t by Monday. [id number] Jacquelin York[address] [address] 05/12/2025 14:19:08 05/12/2025 15:11:26 Low back pain 479353656 M54.16 [id number] Santa Oropeza presented with severe persistent low back pain radiating down the right leg with inadequate pain control despite Kenalog injection, meloxicam, Flexeril, and Lortab. She reported minimal relief from these treatments and her right L spine radicular pain is now severe and progressiv e. For her low back pain with radiculopa thy, an MRI was ordered, Medrol dose pack prescribed , hydrocodon e increased to 7.5mg, and OTC lidocaine patches recommende d. She was advised to continue meloxicam, muscle relaxants, and ice applicatio n. She is in too much pain at this time to complete physical therapy. Health Concerns Section Related Observation LastModified by Organization Detai ls LastModified Time None Recorded Concern Status LastModified by Organization Details LastModified Time None Recorded Payers Encounter Date Sequence Insurance Name Policy Number Policy Hutchins Covered Member ID Hutchins Member ID Guarantor Name 05/12/2025 1 [place] Santa Oropeza [id number] Santa Oropeza 05/12/2025 2 [employer] (MEDICARE SUPPLEMENT) Santa Oropeza [id number] Santa Oropeza Notes Date Note Type Note Provider Name and Address Organization Details Recorded Time 05/12/2025 text/html ROS as noted in the HPI Chief ComplaintLow back pain radiating down the right leg and around to the front of the right lower leg, inadequate pain control despite previous treatmentsHistory of Present IllnessSanta Oropeza returns for follow-up of persistent low back pain radiating down the right leg and around to the front of the right lower leg. The pain pattern has remained unchanged since her last visit on 05/07/25. She received conservative treatment including a Kenalog injection, meloxicam, Flexeril, and Lortab, which provided only minimal relief over the weekend. She reports waking up at 12:30 last night with pain and took half of her remaining Lortab, which did provide some relief. She describes ongoing difficulty with pain control, stating the pain goes all down through there to my big toe. She has been using ice frequently as recommended. She denies any loss of bladder control since her last visit. The patient expresses difficulty sleeping due to the pain and reports not getting adequate pain relief with current medications. Pain appears in a L4 dermatomal pattern on exam. She rates the pain 8/10. She has no previous history of back injury or issues. Jacquelin York, BUSINESS OFFICE ASSOCIATE [address] [facility], [place], [address], [facility] [employer] 05/12/2025 15:28:51 OBGyn Episode No OBEpisode recorded.
--- OUTSIDE RECORDS SUMMARY | 2025-05-16 07:58 | XMS_ITS | Data Portability ---
Author Organization [employer] [facility] Address [address] [place] [address] Assessment Encounter Date Assessment Date Assessment LastModified by Organization Details LastModified Time 01/22/2025 01/22/2025 Patient presente d to office today for their Medicare Annual Wellness Visit. Education was provided on healthy nutrition, including a diet rich in fruits and vegetables, minimizing simple carbohydrates, salt, and saturated fats. Encouraged regular cardiovascular exercise such as walking at least 30 minutes daily, 5 times per week. Emphasized preventive health measures and educated pt on fall prevention and community-based lifestyle interventions to help reduce health risks and promote healthy living. Not available 01/22/2025 10:48:05 04/25/2025 04/25/2025 Santa Oropeza presented for follow-up [...] Not available Not available Not available Lab lipid panel, serum 2024 025 MALISSA [facility] ([place]), [address] [place], [address], 01/23/2025 07:08:34 HbA1c (hemoglob in A1c), blood 2024 025 POWELL [facility] ([place]), [address] [facility], [place], [address], 01/23/2025 07:08:34 CBC w/ auto diff 2024 025 POWELL [facility] ([place]), [address] [place], [address], 01/23/2025 07:08:32 CMP, serum or plasma 2024 025 POWELL [facility] ([place]), [address] [facility], [place], [address], 01/23/2025 07:08:33 PPD (purified protein derivativ e), skin test [email or web address] [place] [address], [address] [place] [address], [id number], 11/21/2024 15:48:44 Referral None recorded. Procedures None recorded. Surgeries None recorded. Imaging MRI, lumbar spine, w/o contrast 2024 [facility] ([facility]), [address], [place], [address], 05/16/2025 04:21:52 Medication Orders Medrol (Gallo) 4 mg tablets in a dose pack 2024 [facility], [address] [place] [address], [id number], 05/12/2025 15:25:21 hydrocodo ne 7.5 mg-acetam inophen 325 mg tablet 2024 [facility], [address] [place] [address], [id number], 05/12/2025 15:25:22 Depo-Medr ol 40 mg/mL suspensio n for injection 2024 025 [email or web address] Not available 05/12/2025 14:42:13 cyclobenz aprine 5 mg tablet 2024 025 [facility], [address] [place] [address], [id number], 05/07/2025 17:25:23 meloxicam 15 mg tablet 2024 025 [facility], [address] [place] [address], [id number], 05/07/2025 17:25:24 hydrocodo ne 5 mg-acetam inophen 325 mg tablet 2024 025 [facility], [address] [place] [address], [id number], 05/12/2025 15:30:25 furosemid e 20 mg tablet 2024 025 [facility], [address] [place] [address], [id number], 04/25/2025 11:58:02 triamcino lone acetonide 0.1 % topical cream 2024 025 [facility], [address] [place] [address], [id number], 04/25/2025 13:23:31 bupropion HCl XL 150 mg 24 hr tablet, extended release 2024 025 POWELL [facility], [address] [place] [address], [id number], 01/22/2025 11:06:36 spironola ctone 50 mg tablet 2024 025 MALISSA [facility], [address] [place], [address], [place], [place], [id number], 01/22/2025 11:06:38 valsartan 160 mg tablet 2024 025 [facility], [address], [address], [place], [id number], 01/22/2025 11:07:02 oxybutyni n chloride ER 10 mg tablet,ex tended release 24 hr 2024 025 MALISSA [facility], [address] [place], [address], [place], [place], [id number], 01/22/2025 11:06:37 omeprazol e 40 mg capsule,d elayed release 2024 025 MALISSA [facility], [address], [place], [place], [id number], 01/22/2025 11:06:37 metoprolo l succinate ER 50 mg tablet,ex tended release 24 hr 2024 025 MALISSA [facility], [address] [place] [address], [address], [place], [place], [id number], 01/22/2025 10:56:29 Patient TargetsNo targets recorded. Patient Instructions Encounter Date Encounter Id Patient Instructions Last Modified By Organization Details Last Modified Time 01/22/2025 [id number] advance care planning: care instructions Not available 01/22/2025 10:51:11 Discussed and explained advance directives such as standard forms to the patient. Face to face discussion lasted for a duration of _5__ minutes. Not available 01/22/2025 10:52:19 Reason for Referral None Reported. Results Created Date Observation Date Name Description Value Unit Range Abnormal Flag Note LastModifiedBy Organization Detail LastModifiedTime 11/22/1911/21/2024 PPD (javon fied prote in deriv ative ), skin test TB negati ve Not Available [address], [place], [address], 11/21/2024 15:15:09 01/23/20 25 01/23/2025 CBC WITH DIFFE RENTI AL/PL ATELE T WBC 6.4 x10e3 /uL 3.4-10 .8 normal Not Available [facility] ([facility]) [address] [facility], [place], [address], 01/23/2025 07:08:32 01/23/20 25 01/23/2025 CBC WITH DIFFE RENTI AL/PL ATELE T RBC 4.68 x10e6 /uL 3.77-5 .28 normal Not Available [facility] ([facility]) [address] [place], [address], 01/23/2025 07:08:32 01/23/20 25 01/23/2025 CBC WITH DIFFE RENTI AL/PL ATELE T hemoglobin 13.8 g/dL 11.1-1 5.9 normal Not Available [facility] ([facility]) [address] [place], [address], 01/23/2025 07:08:32 01/23/20 25 01/23/2025 CBC WITH DIFFE RENTI AL/PL ATELE T hematocrit 43.5 % 34.0-4 6.6 normal Not Available [facility] ([facility]) [address] [place], [address], 01/23/2025 07:08:32 01/23/20 25 01/23/2025 CBC WITH DIFFE RENTI AL/PL ATELE T MCV 93 fL 79-97 normal Not Available [facility] ([facility]) [address] [place], [address], 01/23/2025 07:08:32 01/23/20 25 01/23/2025 CBC WITH DIFFE RENTI AL/PL ATELE T MCH 29.5 pg 26.6-3 3.0 normal Not Available [facility] ([facility]) [address] [facility], [place], [address], 01/23/2025 07:08:32 01/23/20 25 01/23/2025 CBC WITH DIFFE RENTI AL/PL ATELE T MCHC 31.7 g/dL 31.5-3 5.7 normal Not Available [facility] ([facility]) [address] [facility], [place], [address], 01/23/2025 07:08:32 01/23/20 25 01/23/2025 CBC WITH DIFFE RENTI AL/PL ATELE T RDW 13.0 % 11.7-1 5.4 Not Available [facility] ([facility]) [address] [facility], [place], [address], 01/23/2025 07:08:32 01/23/20 25 01/23/2025 CBC WITH DIFFE RENTI AL/PL ATELE T platelets 277 x10e3 /uL 150-45 0 normal Not Available [facility] ([facility]) [address] [place], [address], 01/23/2025 07:08:32 01/23/20 25 01/23/2025 CBC WITH DIFFE RENTI AL/PL ATELE T neutrophils 59 % not estab. normal Not Available [facility] ([facility]) [address] [facility], [place], [address], 01/23/2025 07:08:32 01/23/20 25 01/23/2025 CBC WITH DIFFE RENTI AL/PL ATELE T lymphs 24 % not estab. normal Not Available [facility] ([facility]) [address] [facility], [place], [address], 01/23/2025 07:08:32 01/23/20 25 01/23/2025 CBC WITH DIFFE RENTI AL/PL ATELE T monocytes 6 % not estab. normal Not Available [facility] ([facility]) [address] [facility], [place], [address], 01/23/2025 07:08:32 01/23/20 25 01/23/2025 CBC WITH DIFFE RENTI AL/PL ATELE T eos 9 % not estab. normal Not Available [facility] ([facility]) [address] [facility], [place], [address], 01/23/2025 07:08:32 01/23/20 25 01/23/2025 CBC WITH DIFFE RENTI AL/PL ATELE T basos 1 % not estab. normal Not Available [facility] ([facility]) [address] [facility], [place], [address], 01/23/2025 07:08:32 01/23/20 25 01/23/2025 CBC WITH DIFFE RENTI AL/PL ATELE T immature cells LOBBY ATTENDANT Not Available [facility] ([facility]) [address] [facility], [place], [address], 01/23/2025 07:08:32 01/23/20 25 01/23/2025 CBC WITH DIFFE RENTI AL/PL ATELE T neutrophils (absolute) 3.8 x10e3 /uL 1.4-7. 0 normal Not Available [facility] ([facility]) [address] [place], [address], 01/23/2025 07:08:32 01/23/20 25 01/23/2025 CBC WITH DIFFE RENTI AL/PL ATELE T lymphs (absolute) 1.5 x10e3 /uL 0.7-3. 1 normal Not Available [facility] ([facility]) [address] [place], [address], 01/23/2025 07:08:32 01/23/20 25 01/23/2025 CBC WITH DIFFE RENTI AL/PL ATELE T monocytes(ab solute) 0.4 x10e3 /uL 0.1-0. 9 normal Not Available [facility] ([facility]) [address] [facility], [place], [address], 01/23/2025 07:08:32 01/23/20 25 01/23/2025 CBC WITH DIFFE RENTI AL/PL ATELE T eos (absolute) 0.6 x10e3 /uL 0.0-0. 4 above high normal Not Available [facility] ([facility]) [address] [facility], [place], [address], 01/23/2025 07:08:32 01/23/20 25 01/23/2025 CBC WITH DIFFE RENTI AL/PL ATELE T baso (absolute) 0.0 x10e3 /uL 0.0-0. 2 normal Not Available [facility] ([facility]) [address] [facility], [place], [address], 01/23/2025 07:08:32 01/23/20 25 01/23/2025 CBC WITH DIFFE RENTI AL/PL ATELE T immature granulocytes 1 % not estab. Not Available [facility] ([facility]) [address] [facility], [place], [address], 01/23/2025 07:08:32 01/23/20 25 01/23/2025 CBC WITH DIFFE RENTI AL/PL ATELE T immature grans (abs) 0.0 x10e3 /uL 0.0-0. 1 Not Available [facility] ([facility]) [address] [facility], [place], [address], 01/23/2025 07:08:32 01/23/20 25 01/23/2025 CBC WITH DIFFE RENTI AL/PL ATELE T NRBC LOBBY ATTENDANT Not Available [facility] ([facility]) [address] [facility], [place], [address], 01/23/2025 07:08:32 01/23/20 25 01/23/2025 CBC WITH DIFFE RENTI AL/PL ATELE T hematology comments: LOBBY ATTENDANT Not Available [facility] ([facility]) [address] [facility] [place], [address], 01/23/2025 07:08:32 01/23/20 25 01/23/2025 COMP. METAB OLIC PANEL (14) glucose 111 mg/dL 70-99 above high normal Not Available [facility] ([facility]) [address] [facility] [place], [address], 01/23/2025 07:08:33 01/23/20 25 01/23/2025 COMP. METAB OLIC PANEL (14) BUN 26 mg/dL 8-27 normal Not Available [facility] ([facility]) [address] [facility] [place], [address], 01/23/2025 07:08:33 01/23/20 25 01/23/2025 COMP. METAB OLIC PANEL (14) creatinine 1.19 mg/dL 0.57-1 .00 above high normal Not Available [facility] ([facility]) [address] [facility] [place], [address], 01/23/2025 07:08:33 01/23/20 25 01/23/2025 COMP. METAB OLIC PANEL (14) eGFR 47 mL/mi n/1.7 3 >59 below low normal Not Available [facility] ([facility]) [address] [facility] [place], [address], 01/23/2025 07:08:33 01/23/20 25 01/23/2025 COMP. METAB OLIC PANEL (14) BUN/creatini ne ratio 22 12-28 normal Not Available [facility] ([facility]) [address] [facility] [place], [address], 01/23/2025 07:08:33 01/23/20 25 01/23/2025 COMP. METAB OLIC PANEL (14) sodium 138 mmol/ L 134-14 4 normal Not Available [facility] ([facility]) [address] [facility] [place], [address], 01/23/2025 07:08:33 01/23/20 25 01/23/2025 COMP. METAB OLIC PANEL (14) potassium 5.1 mmol/ L 3.5-5. 2 normal Not Available [facility] ([facility] [address] [facility] [place], [address], 01/23/2025 07:08:33 01/23/20 25 01/23/2025 COMP. METAB OLIC PANEL (14) chloride 102 mmol/ L 96-106 normal Not Available [facility] ([facility]) [address] [facility] [place], [address], 01/23/2025 07:08:33 01/23/20 25 01/23/2025 COMP. METAB OLIC PANEL (14) carbon dioxide, total 22 mmol/ L 20-29 normal Not Available [facility] ([facility]) [address] [facility] [place], [address], 01/23/2025 07:08:33 01/23/20 25 01/23/2025 COMP. METAB OLIC PANEL (14) calcium 9.7 mg/dL 8.7-10 .3 normal Not Available [facility] ([facility]) [address] [facility] [place], [address], 01/23/2025 07:08:33 01/23/20 25 01/23/2025 COMP. METAB OLIC PANEL (14) protein, total 6.9 g/dL 6.0-8. 5 normal Not Available [facility] ([facility]) [address] [facility] [place], [address], 01/23/2025 07:08:33 01/23/20 25 01/23/2025 COMP. METAB OLIC PANEL (14) albumin 4.1 g/dL 3.8-4. 8 normal Not Available [facility] ([facility]) [address] [facility] [place], [address], 01/23/2025 07:08:33 01/23/20 25 01/23/2025 COMP. METAB OLIC PANEL (14) globulin, total 2.8 g/dL 1.5-4. 5 Not Available [facility] ([facility]) [address] [place], [address], 01/23/2025 07:08:33 01/23/20 25 01/23/2025 COMP. METAB OLIC PANEL (14) bilirubin, total 0.3 mg/dL 0.0-1. 2 normal Not Available [facility] ([facility]) [address] [place], [address], 01/23/2025 07:08:33 01/23/20 25 01/23/2025 COMP. METAB OLIC PANEL (14) alkaline phosphatase 91 IU/L 44-121 normal Not Available [facility] ([facility]) [address] [place], [address], 01/23/2025 07:08:33 01/23/20 25 01/23/2025 COMP. METAB OLIC PANEL (14) AST (SGOT) 16 IU/L 0-40 normal Not Available [facility] ([facility]) [address] [place], [address], 01/23/2025 07:08:33 01/23/20 25 01/23/2025 COMP. METAB OLIC PANEL (14) ALT (SGPT) 14 IU/L 0-32 normal Not Available [facility] ([facility]) [address] [place], [address], 01/23/2025 07:08:33 01/23/20 25 01/23/2025 LIPID PANEL cholesterol, total 185 mg/dL 100-19 9 normal Not Available [facility] ([facility]) [address] [place], [address], 01/23/2025 07:08:34 01/23/20 25 01/23/2025 LIPID PANEL triglyceride s 73 mg/dL 0-149 normal Not Available [facility] ([facility]) [address] [place], [address], 01/23/2025 07:08:34 01/23/20 25 01/23/2025 LIPID PANEL HDL cholesterol 61 mg/dL >39 normal Not Available [facility] ([facility]) [address] [place], [address], 01/23/2025 07:08:34 01/23/20 25 01/23/2025 LIPID PANEL VLDL cholesterol nara 14 mg/dL 5-40 Not Available [facility] ([facility]) [address] [place], [address], 01/23/2025 07:08:34 01/23/20 25 01/23/2025 LIPID PANEL LDL chol calc ([facility]) 110 mg/dL 0-99 above high normal Not Available [facility] ([facility]) [address] [place], [address], 01/23/2025 07:08:34 01/23/2001/23/2025 LIPID PANEL LDL calc comment: LOBBY ATTENDANT Not Available [facility] ([facility]) [address] [place], [address], 01/23/2025 07:08:34 01/23/2001/23/2025 HEMOG LOBIN A1C hemoglobin A1C 6.1 % 4.8-5. 6 above high normal Predi abete s: 5.7 - 6.4 Diabe harpreet: >6.4 Glyce teresita contr ol for adult s with diabe harpreet: <7.0 Not Available [facility] ([facility]) [address] [place], [address], 01/23/2025 07:08:34 Result Notes None recorded. Problems Name Problem SNOMED Code Status Onset Date Resolution Date Notes Provider Name and Address Organization Details Recorded Time Hyperten sive disorder 45551942 Completed 201609/22/2016 Problem Code: I10; Problem Code Type: ICD-10; Not Available [facility] 2 22:26:22 Benign essentia l hyperten giovanna 9528287 Active 2016 Problem Code: 401.1; Problem Code Type: ICD-9; Not Available [facility] 2 22:26:29 Vitamin B deficien cy 84275448 Active 2016 Problem Code: E53.9; Problem Code Type: ICD-10; Not Available [facility] 2 22:26:22 Vitamin D deficien cy 32707322 Active 2016 Problem Code: E55.9; Problem Code Type: ICD-10; Not Available [facility] 2 22:26:22 Moderate major depressi on, single episode 84081298 Completed 201606/12/2018 Problem Code: F32.1; Problem Code Type: ICD-10; Not Available [facility] 2 22:26:22 Moderate recurren t major depressi on 85246830 Active 2016 Problem Code: F33.1; Problem Code Type: ICD-10; Not Available [facility] 2 22:26:22 Mixed urinary incontin ence 361621126 Completed 201604/08/2017 Problem Code: N39.46; Problem Code Type: ICD-10; Not Available [facility] 2 22:26:24 Localize d edema 533876070 Completed 201602/21/2017 Problem Code: R60.0; Problem Code Type: ICD-10; Not Available [facility] 2 22:26:25 Depressi ve disorder 78731371 Active 2016 Problem Code: 311; Problem Code Type: ICD-9; Not Available [facility] 22:26:28 Edema 599141885 Completed 201602/21/2017 Problem Code: 782.3; Problem Code Type: ICD-9; Not Available [facility] 2 22:26:29 Dysthymi a 80653773 Completed 201608/15/2019 Problem Code: R53.81; Problem Code Type: ICD-10; Not Available [facility] 2 22:26:24 Acute bronchit is 47439461 Completed 201711/20/2017 Problem Code: J20.9; Problem Code Type: ICD-10; Not Available [facility] 2 22:26:23 Cough 06823315 Completed 201710/05/2017 Problem Code: R05; Problem Code Type: ICD-10; Not Available [facility] 2 22:26:29 Acute sinusiti s 92491365 Completed 201710/16/2017 Problem Code: J01.90; Problem Code Type: ICD-10; Not Available [facility] 2 22:26:23 Allergic rhinitis caused by pollen 48070353 Completed 201702/20/2018 Problem Code: J30.1; Problem Code Type: ICD-10; Not Available [facility] 2 22:26:23 Heartbur n 09637637 Completed 201701/05/2018 Problem Code: R12; Problem Code Type: ICD-10; Not Available [facility] 2 22:26:24 Mixed hyperlip idemia 514341379 Active 2017 Problem Code: E78.2; Problem Code Type: ICD-10; Not Available [facility] 22:26:22 Hyperten sive disorder 80177708 Active 2017 Problem Code: I10; Problem Code Type: ICD-10; Not Available [facility] 2 22:26:23 Mixed urinary incontin ence 542287647 Completed 201708/11/2018 Problem Code: N39.46; Problem Code Type: ICD-10; Not Available [facility] 2 22:26:28 Gastroes ophageal reflux disease without esophagi tis 313121741 Active 2018 Not Available [facility] 2 22:26:23 Pain of left hip joint 14557877254 9100 Completed 201808/15/2019 Problem Code: M25.552; Problem Code Type: ICD-10; Not Available [facility] 2 22:26:23 Low back pain 201961052 Completed 201808/15/2019 Problem Code: M54.5; Problem Code Type: ICD-10; Jacquelin York APRN [address] [place], [address] , [employer] 5 14:47:30 Idiopath ic osteoart hritis 031401004 Active 2018 Problem Code: M16.11; Problem Code Type: ICD-10; Not Available [facility] 2 22:26:23 Influenz a vaccine needed 36298024252 06 Completed 201912/27/2021 Problem Code: Z23; Problem Code Type: ICD-10; ARACELY enriquez, [employer] 3 11:24:26 Body mass index 30+ - obesity 516341548 Completed 201912/27/2021 Problem Code: Z68.36; Problem Code Type: ICD-10; Not Available [facility] 2 22:26:27 Hypergly cemia 11841861 Active 2019 Problem Code: R73.9; Problem Code Type: ICD-10; Not Available [facility] 2 22:26:25 Prediabe harpreet 821379169 Active 2019 Problem Code: R73.03; Problem Code Type: ICD-10; Jacquelin York APRN [address] [place], [address] , [employer] 5 10:48:42 Trochant mayur bursitis of left hip 21273485985 9103 Completed 202012/27/2021 Not Available [facility] 2 22:26:24 General examinat ion of patient Active 2020 Not Available [facility] 2 22:26:26 Body mass index 30+ - obesity 998512700 Active 2020 Problem Code: Z68.36; Problem Code Type: ICD-10; Not Available [facility] 2 22:26:27 Acute left otitis media 573936954 Active 2024 Jacquelin York APRN [address] [place] [address], [address] , [employer] 17:43:39 Acute otitis externa 19199597 Active 2024 Jacquelinantony York APRN [address] [place] [address], [address] , [employer] 17:43:47 Peripher al vascular disease 794791006 Active 2024 Jacquelin York APRN [address] [place] [address], [address] , [employer] 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 11:37:29 Disorder of right sciatic nerve 80505442762 9102 Active 2024 Jacquelin York APRN [address] [place] [address], [address] , [employer] 17:02:20 Low back pain 461362713 Active 2024 Problem Code: M54.5; Problem Code Type: ICD-10; Jacquelin Jaylen HEAVY FORGER [address] [place] [address], [address] , [employer] 14:47:30 Notes:Some problems listed i n Document: #[id number] could not be added to this patient's chart. Please review this document and add these problems to the patient's chart manually as needed. Problem Notes None recorded. Procedures Surgical History Date Name Laterality Status Provider Name and Address Organization Details Recorded Time 3 I&D completed Jacquelin York APRN [address] [place] [address], [address], [employer] 08/19/2022 11:49:50 2 cataract surgery completed Not Available [facility] 03/08/2022 22:56:11 Imaging Results None recorded. Procedure [...] mcg (50,000 unit) tablet one po weekly 08/05/ 2019 12/10 /2021 completed Not Available Not Available Not Available [...] Details Last Updated DateTime 5 157.48 cm 35.9 kg/m2 05147.5 4 g 98 [degF] 51 /min 90 % 90 % 113/46 mm[Hg] [employer] 5 10:43:52 Date Recorded Body height Body mass index (BMI) Body weight Body temperature Heart rate Oxygen saturation Oxygen saturation in Arterial blood by Pulse oximetry Systolic And Diastolic Provider Name and Address Organization Details Last Updated DateTime 5 157.48 cm 36.5 kg/m2 43649.0 4 g 97.2 [degF] 54 /min 94 % 94 % 131/52 mm[Hg] [employer] 5 11:21:28 Date Recorded Body height Body mass index (BMI) Body weight Body temperature Heart rate Oxygen saturation Oxygen saturation in Arterial blood by Pulse oximetry Systolic And Diastolic Systolic And Diastolic Systolic And Diastolic Provider Name and Address Organization Details Last Updated DateTime 5 157.48 cm 36.6 kg/m2 56881.4 7 g 98.3 [degF] 56 /min 93 % 93 % 165/83 mm[Hg] 154/78 mm[Hg] 132/65 mm[Hg] [employer] 5 16:50:34 Date Recorded Body height Body mass index (BMI) Body weight Body temperature Heart rate Oxygen saturation Oxygen saturation in Arterial blood by Pulse oximetry Systolic And Diastolic Systolic And Diastolic Systolic And Diastolic Provider Name and Address Organization Details Last Updated DateTime 5 157.48 cm 36.6 kg/m2 30578.4 7 g 97.9 [degF] 52 /min 93 % 93 % 161/51 mm[Hg] 154/79 mm[Hg] 132/74 mm[Hg] ARACELY WATTERSDELORES [employer] 5 14:41:50 Social History Question Answer Notes LastModified by Organizat ion Details LastModified Time Tobacco Smoking Status Never Smoker SocialHis toryQuest ion: 'Tobacco/ Alcohol/S upplement s'; SocialHis toryRespo nse: 'Never Smoker'; Not Available [facility] 03/08/2022 22:59:32 Do You Have An Advance [...] Do You Have A Medical Power Of Postal Inspector? No Information not available 01/23/2023 What Was [...] recombinant 4 completed Jacquelin York APRN [address] [place], [address], [employer] 07/30/2023 16:11:26 Influenza, split virus, quadrivalent, PF 9 completed Not Available [facility] 03/08/2022 23:27:31 COVID-19 vaccine, vector-nr, rS-Ad26, PF, 0.5 mL 1 completed ARACELY enriquez, [employer] 08/19/2022 11:00:01 pneumococcal polysaccharide PPV23 0 completed Not Available [facility] 03/08/2022 23:27:35 Influenza, split virus, quadrivalent, preservative 0 completed Not Available [facility] 03/08/2022 23:27:36 zoster recombinant 4 completed Jacquelin York APRN [address] [place], [address], [employer] 02/18/2024 14:54:52 Influenza, high-dose, trivalent, PF 5 completed Jacquelin York APRN [address] [place], [address], [employer] 08/20/2024 12:30:49 Influenza, split virus, quadrivalent, PF 1 completed ARACELY WATTERSNEAR null, [place] [employer] 08/19/2022 11:00:01 Influenza, split virus, quadrivalent, PF 2 completed ARACELY DUONGNEAR null, [employer] 08/19/2022 11:00:01 Influenza, split virus, quadrivalent, PF 3 completed Not Available [facility] 05/12/2025 14:26:10 Influenza, split virus, trivalent, PF 5 completed Not Available [facility] 05/12/2025 14:26:10 Past Encounters Encounter ID Performer Location Encounter Start Date Encounter Closed Date Diagnosis/Indication Diagnosis SNOMED-CT Code Diagnosis ICD10 Code Diagnosis IMO Codes Diagnosis Note [id number] [place] [id number] 06/28/2022 08:56:24 06/28/2022 10:08:20 Prediabetes 284495479 R73.03 Remains in Prediabeti c range. Essential hypertension 15104859 I10 Continue current medication s, low salt DASH diet, exercise and weight loss emphasized . Depressive disorder 8103 8247 F32.A Add Wellbutrin 150 mg daily. I recommende d she see therapist and she declined today, says her sister is her support system. Overactive urinary bladder 647874973 N32.81 Gastroesop hageal reflux disease without esophagitis 786431335 K21.9 [id number] Jacquelin York [place] [id number] 08/19/2022 10:35:03 08/19/2022 11:36:06 Abscess of skin and/or subcutaneous tissue 09720293 L02.91 Leave dressing on until tomorrow, then keep clean, dry and covered. Complete all antx. Cleanse BID with soap and water and apply a bandaid. Complete entire course of antibioiti cs. Inst to notify me if erythema progresses , pain progresses , develops fever, failure to heal, etc. [id number] Jacquelin York [place] [id number] 01/23/2023 11:08:45 01/23/2023 13:23:41 Benign essential hypertension 0896027 I10 Start Valsartan 40 mg daily. Continue metoprolol and HCTZ. DASH diet, exercise and weight loss emphasized . Check BP daily at home and call me if 140/90 or >. Prediabetes 692289296 R7 3.03 Remains in Prediabeti c range. Moderate r ecurrent major depression 30514845 F33.1 Continue wellbutrin and celexa. Mixed hyperlipidemia 267 902961 E78.2 Adult heal th examination 164905615 Z00.00 Body mass index 30+ - obesity 659572270 Z68.37 Essential hypertension 12333957 I10 Continue current medication s, low salt DASH diet, exercise and weight loss emphasized . Allergic rhinitis 334845 04 J30.9 Active or passive immunization 005735417 Z23 Gastroesop hageal reflux disease without esophagitis 011223069 K21.9 Overactive urinary bladder 431406001 N32.81 [id number] Jacquelin York [place] [id number] 02/01/2023 13:17:17 02/01/2023 14:35:46 Acute sinusitis 88771638 J01.90 Patient likely has an acute bacterial sinusitis. Will treat as below. No signs of preseptal or orbital cellulitis , meningismu s, or neurologic changes concerning for intracrani al process. Instructed family to monitor patient closely and call office for any of these symptoms. Supportive care reviewed: raising HOB, humidifier use, saline nasal spray, rest, encourage PO fluids and monitor hydration status, infection control measures. Recommende d acetaminop hen/ibupro fen PRN pain, fever; reviewed appropriat e doses. Follow-up as below. [id number] Jacquelin York [address] [phone] 03/15/2023 14:35:34 03/15/2023 17:21:31 Fever 341173784 R50.9 COVID-19 269643669 U07.1 Will treat with Paxlovid due to age, obesity, HTN, prediabete s. She was medicated with 1 gm tylenol in office today for fever. Isolation precaution s and sx management explained. May use antipyreti cs, Mucinex, rest, push fluids, handwashin g. She was inst on alarm sx and directed to proceed to ER if her conditions progresses . [id number] [place] [address] 07/28/2023 10:37:44 07/28/2023 12:13:40 Prediabetes 371575899 R73.03 Stable on diet modificati on. Benign ess ential hypertension 5003183 I10 Increase Valsartan to 80 mg daily. DASH diet and exercise encouraged . Depressive disorder 3548 9007 F32.A Continue wellbutrin . Mixed hyperlipidemia 267 047846 E78.2 She continues to decline medication for HLD. Pain in le ft lower limb 979583887 M79.605 Start ASA 162 mg daily, elevate, and obtain Venous duplex to r/o DVT Active or passive immunization 720424419 Z23 Overactive urinary bladder 302848635 N32.81 [id number] Jacquelin York [place] [address] 11/06/2023 15:23:35 11/06/2023 16:02:46 Cellulitis of left lower limb 6538718049 2620193 L03.116 Elevate, SAIDA hose, start antx today. She was cautioned to call me if no improvemen t in 2-3 days. [id number] Jacquelin York [place] [address] 0 11/10/2023 13:38:24 11/10/2023 16:36:14 Phlebitis of lower limb vein 319884764 I80.3 LEFT. Continue antx, start Lasix for 3-5 days. SAIDA socks daily. Elevate legs. Obtain venous duplex to r/o DVT. Reduce salt intake. [id number] Jacquelin York [place] [address] 0 02/13/2024 10:20:45 02/13/2024 11:34:19 Adult health examination 620602121 Z00.00 Prediabetes 927400324 R7 3.03 Stable on diet modificati on. Essential hypertension 30588266 I10 Continue current medication s, low salt DASH diet, exercise and weight loss emphasized . Mixed hyperlipidemia 267 596747 E78.2 She continues to decline medication for HLD. Depressive disorder 3548 9007 F32.A Continue wellbutrin . Vitamin D deficiency 347 78598 E55.9 Peripheral vascular disease 274810542 I73.9 Keep f/up with vascular, continue saida hose and elevation. Active or passive immunization 647534684 Z23 Benign ess ential hypertension 1091262 I10 Continue Valsartan to 80 mg daily. DASH diet and exercise encouraged . Allergic rhinitis 413727 04 J30.9 Overactive urinary bladder 014676453 N32.81 [id number] Jacquelin York[address] 0 08/20/2024 07:52:48 08/20/2024 08:36:08 Hypertensive disorder 32315337 I10 Increase valsartan to 160 mg. DASH diet, exercise, and weight loss encouraged . Mixed hyperlipidemia 267 709740 E78.2 She continues to decline medication for HLD. Moderate r ecurrent major depression 59238422 F33.1 Continue wellbutrin Prediabetes 553029824 R7 3.03 Stable on diet modificati on. Vitamin B deficiency 479 92373 E53.9 Vitamin D deficiency 347 82584 E55.9 Active or passive immunization 476357901 Z23 Benign ess ential hypertension 9435940 I10 Continue Valsartan to 80 mg daily. DASH diet and exercise encouraged . Gastroesop hageal reflux disease without esophagitis 461270819 K21.9 Overactive urinary bladder 243231716 N32.81 [id number] Summer Casas [address] 0 11/18/2024 09:17:05 11/18/2024 09:51:18 Tuberculosis screening status 879507961 Z11.1 [id number] employment [id number] Jacqueiln York, [place] [address] 11/19/2024 17:10:21 11/19/2024 17:47:30 Hypertensive disorder 13971930 I10 Continue valsartan at 160mg daily. Stop HCTZ. Start spironalda ctone.. DASH diet, exercise, and weight loss encouraged . Saida hose daily reinforced . Acute left otitis media 410966321 H66.92 [id number] Patient presents with signs/symp toms of otitis media. Will treat as below. Supportive care reviewed:h umidifier use, raise HOB, saline nasal spray, encourage PO fluids. Recommende d acetaminop hen/ibupro fen PRN pain/fever Follow up as below. Acute otitis externa 302 83420 H60.332 [id number] [id number] ROCHELLE WILKINS NP [place] [address] 11/21/2024 15:09:38 11/21/2024 15:36:08 Tuberculosis screening status 494939747 Z11.1 077910 [id number] Jacquelin Jaylen [place] [address] 01/22/2025 10:35:07 01/22/2025 11:24:34 Preventive procedure 946074724 Z00.00 58773202 Prediabetes 072038479 R7 3.03 172602 Stable on diet modificati on. Mixed hyperlipidemia 267 136657 E78.2 She continues to decline medication for HLD. Benign ess ential hypertension 0928533 I10 Decrease Metoprolol to 50 mg daily due to bradycardi a. Gastroesop hageal reflux disease without esophagitis 239165722 K21.9 Continue PPI but use it only prn. Overactive urinary bladder 801375918 N32.81 Hypertensive disorder 38 284302 I10 Continue valsartan at 160mg And spironalda ctone. 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 [id number] Jacquelin York [address] [phone] 05/12/2025 14:19:08 05/12/2025 15:11:26 Low back pain 705423100 M54.16 [id number] Santa Oropeza presented with severe persistent low [...] by Organization Details LastModified Time None Recorded Advance Directives Directive N: Payers Insurance Date Sequence Insurance Name Policy Number Policy Hutchins Covered Member ID Hutchins Member ID Guarantor Name 05/12/2025 2 [employer] (MEDICARE SUPPLEMENT) Santa Oropeza [id number] Santa Ocdarline 05/06/2025 1 [place] Santa Oropeza [id number] Santa [employer]cdarline 11/10/2023 2 [employer] (MEDICARE SUPPLEMENT) Santa Oropeza [id number] Santa Ocdarline 05/06/2025 [place] [facility] Santa Oropeza [id number] Santa Ocdarline Notes Date Note Type Note Provider Name and Address Organization Details Recorded Time 5 text/html HyperlipidemiaReported by PatientHPIFor duration, patient reportschronic. For risk factors, patient reportsfamily history of premature arteriosclerotic cardiovascular disease,hypertension, andobesity(prediabetes). For prior tests, patient reportshighest ldl-c level: 112 date:. For control, patient reportsimproving. For adherence to treatment plan, patient reportsfollows recommended dietandexercises(she has declined statin therapy previously). For complications, patient reportsno coronary artery disease,no peripheral artery disease, andno cardiovascular disease. Anxiety/DepressionReported by PatientHPIFor context, patient reportsmajor life stressors,family problems, andbereavement. For associated symptoms, patient reportsdepression,grieving, anhedonia, anddecreased effectiveness/productivityb ut reportsdenies homicidal ideations,no significant weight gain,no significant weight loss,no visual/auditory hallucinations,no delusions,no shortness of breath,no anxiety,no crying spells,no panic,no isolation,no fatigue,sleeping well,appetite good,no apathy,maintaining functionality,no excessive worrying,no apprehension,no htn,no muscular tension,no leaden paralysis,no posttraumatic stress disorder,no panic symptoms,no obsessive-compulsive disorder,no feelings of worthlessness, andable to concentrate. For severity, patient reportsdenies suicidal ideations,able to maintain relationships, andsymptoms improved. For duration, patient reportschronic. For onset/timing, patient reportsgradual. For modifying factors, patient reportssocial supportandmedications as directed.Patient with prediabetes needs follow-up A1c today. She also takes medication for overactive bladder and GERD. She states these conditions have not progressed and the medications remain effective. Hypertension F/UReported by PatientHPIFor lifestyle, patient reportsnot exercising regularlyanddoes not adhere to low sodium diet. For medications, patient reportstaking medications as directedandno side effects from medication. For associated symptoms, patient reportsno dizziness,no lightheadedness,no chest pain,no shortness of breath,no palpitations,no edema,no calf pain with exertion, andno headache. Medicare Annual Wellness VisitReported by PatientSocial/Behavioral HistoryFor physical activity, patient reportsdoes not exercise on a regular basisbut reportsdiscussed weightbearing activities. For diet and nutrition, patient reportsdiscussed vitamin and supplement use,discussed portion control, anddiscussed diet improvement. For fracture risk, patient reportsno history of fracturesandno recent explained fracture.Mental Status:For depression risk, patient reportsfeels sad, empty, or tearfulandhistory of depressionbut reportsno loss of interest in activities,no significant changes in weight,no sleep disturbances or insomnia,no agitation,no loss of energy,no feelings of worthlessness or guilt, andno thoughts of suicide. For orientation, patient reportsno disorientation to time,no disorientation to date, andno disorientation to place. For concentration and memory, patient reportsno decreased concentrating ability,no memory lapses or loss, anddoes not forget words. For speech/motor difficulties, patient reportsno speech difficulties,no difficulty expressing formulated concepts,no difficulty with fine manipulative tasks,no difficulty writing/copying,no slowed reaction time, anddoes not knock things over when trying to pick them up.Functional AbilityFor hearing, patient reportsno loss of hearing. For vision, patient reportsno vision problems. For instrumental activities of daily living, patient reportsable to do house work with limited or no assistance,able to grocery shop with limited or no assistance,able to manage medications with limited or no assistance,able to manage money with limited or no assistance,able to prepare meals with limited or no assistance, andable to use the phone with limited or no assistance. For falls risk assessment, patient reportsno frequent falls while walking,no fall in the past year, andno fall since last visit. For home safety, patient reportsno unsafe rohan hazzards,no unsafe stairs,no unsafe gas appliances,working smoke/co detectors,use of seatbelts,no vision or hearing loss while driving,no fire arms,has hand bars in the bathroom/shower,good lighting in the home,reviewed sun protection, andnumber of motor vehicle accidents 0.ROS as noted in the HPI Prediabetes. Stable BLE PVD. She is wearing SAIDA hose. Needs f/up on vit D and B deficiencies. Jacquelin York APRN [address] [place], [address], [employer]. 01/30/2025 17:54:40 5 text/html ROS as noted in the HPI [...] shot as scheduled. Jacquelin York APRN [address] [place], [address], [employer]. 04/25/2025 18:10:58 5 text/html ROS as noted in the HPI Chief ComplaintBack pain that started Monday, worsened yesterday, radiating around to the side, severe enough to cause crying and sleep disruption for two nightsHistory of Present IllnessSanta Oropeza presents with severe lower back pain that started Monday, worsened yesterday, and continued to progress. The pain is located in the right lower back and radiates around to the side. She denies any precipitating injury or lifting on Monday prior to onset. The pain is described as severe enough to make her want to cry and has been keeping her awake at night, specifically Monday night and last night. She has tried ibuprofen at home without relief. She reports this is unlike any back pain she has experienced before. The patient denies any bowel or bladder incontinence, numbness, tingling, sharp or burning sensations. She states she does not lift or do anything strenuous and is not working this week. Jacquelin York APRN [address] [place], [address], [employer] 05/15/2025 16:22:04 text/html ROS as noted in the HPI [...] history of back injury or issues. Jacquelin York APRN [address] [facility], [place], [address], [employer] 05/12/2025 15:28:51 OBGyn Episode No OBEpisode recorded.
--- OUTSIDE RECORDS SUMMARY | 2025-05-16 07:58 | XMS_ITS | Continuity of Care Document ---
Author Organization [facility] Address [address] [place] [id number] Assessment No assessment recorded. Plan of Treatment Reminders Order Date Submit Date Provider Last Modified By Organization Details Last Modified Time Details Appointments ANNUAL EXAM 2025 09:00A M Gina York APRN Not available Not available Not available Lab None recorded. Referral None recorded. Procedures None recorded. Surgeries None recorded. Imaging None recorded. Medication Orders Depo-Medr ol 40 mg/mL suspensio n for injection 2024 [facility] Not available 05/12/2025 14:42:13 cyclobenz aprine 5 mg tablet 2024 [facility], [address] [place] [address], [id number], 05/07/2025 17:25:23 meloxicam 15 mg tablet 2024 025 [facility], [address] [place] [address], [id number], 05/07/2025 17:25:24 hydrocodo ne 5 mg-acetam inophen 325 mg tablet 2024 025 [facility], [address] [place] [address], [id number], 05/12/2025 15:30:25 Patient TargetsNo targets recorded. Patient InstructionsNo instructions recorded. Reason for Referral None Reported. Problems Name Problem SNOMED Code Status Onset Date Resolution Date Notes Provider Name and Address Organization Details Recorded Time Hyperten sive disorder 24442137 Completed 201609/22/2016 Problem Code: I10; Problem Code Type: ICD-10; Not Available [facility] 2 22:26:22 Benign essentia l hyperten giovanna 2646376 Active 2016 Problem Code: 401.1; Problem Code Type: ICD-9; Not Available [facility] 2 22:26:29 Vitamin B deficien cy 84970185 Active 2016 Problem Code: E53.9; Problem Code Type: ICD-10; Not Available [facility] 22:26:22 Vitamin D deficien cy 56831726 Active 2016 Problem Code: E55.9; Problem Code Type: ICD-10; Not Available [facility] 22:26:22 Moderate major depressi on, single episode 82576563 Completed 201606/12/2018 Problem Code: F32.1; Problem Code Type: ICD-10; Not Available [facility] 2 22:26:22 Moderate recurren t major depressi on 70362709 Active 2016 Problem Code: F33.1; Problem Code Type: ICD-10; Not Available [facility] 22:26:22 Mixed urinary incontin ence 905031781 Completed 201604/08/2017 Problem Code: N39.46; Problem Code Type: ICD-10; Not Available [facility] 2 22:26:24 Localize d edema 672916382 Completed 201602/21/2017 Problem Code: R60.0; Problem Code Type: ICD-10; Not Available [facility] 22:26:25 Depressi ve disorder 42918733 Active 2016 Problem Code: 311; Problem Code Type: ICD-9; Not Available [facility] 22:26:28 Edema 152747939 Completed 201602/21/2017 Problem Code: 782.3; Problem Code Type: ICD-9; Not Available [facility] 09/05/202 2 22:26:29 Dysthymi a 40566814 Completed 201608/15/2019 Problem Code: R53.81; Problem Code Type: ICD-10; Not Available [facility] 2 22:26:24 Acute bronchit is 95708611 Completed 201711/20/2017 Problem Code: J20.9; Problem Code Type: ICD-10; Not Available [facility] 2 22:26:23 Cough 93691133 Completed 201710/05/2017 Problem Code: R05; Problem Code Type: ICD-10; Not Available [facility] 2 22:26:29 Acute sinusiti s 99551196 Completed 201710/16/2017 Problem Code: J01.90; Problem Code Type: ICD-10; Not Available [facility] 2 22:26:23 Allergic rhinitis caused by pollen 79092631 Completed 201702/20/2018 Problem Code: J30.1; Problem Code Type: ICD-10; Not Available [facility] 2 22:26:23 Heartbur n 93086941 Completed 201701/05/2018 Problem Code: R12; Problem Code Type: ICD-10; Not Available [facility] 22:26:24 Mixed hyperlip idemia 726459185 Active 2017 Problem Code: E78.2; Problem Code Type: ICD-10; Not Available [facility] 22:26:22 Hyperten sive disorder 69318230 Active 2017 Problem Code: I10; Problem Code Type: ICD-10; Not Available [facility] 2 22:26:23 Mixed urinary incontin ence 002841356 Completed 201708/11/2018 Problem Code: N39.46; Problem Code Type: ICD-10; Not Available [facility] 2 22:26:28 Gastroes ophageal reflux disease without esophagi tis 233918754 Active 2018 Not Available [facility] 2 22:26:23 Pain of left hip joint 23092564659 9100 Completed 201808/15/2019 Problem Code: M25.552; Problem Code Type: ICD-10; Not Available [facility] 2 22:26:23 Low back pain 483282138 Completed 201808/15/2019 Problem Code: M54.5; Problem Code Type: ICD-10; Jacquelin York APRN [address] [place], [address] , [employer] 5 14:47:30 Idiopath ic osteoart hritis 618584367 Active 2018 Problem Code: M16.11; Problem Code Type: ICD-10; Not Available [facility] 2 22:26:23 Influenz a vaccine needed 83174406132 06 Completed 201912/27/2021 Problem Code: Z23; Problem Code Type: ICD-10; ARACELY enriquez, [employer] 3 11:24:26 Body mass index 30+ - obesity 737813785 Completed 201912/27/2021 Problem Code: Z68.36; Problem Code Type: ICD-10; Not Available [facility] 2 22:26:27 Hypergly cemia 65728056 Active 2019 Problem Code: R73.9; Problem Code Type: ICD-10; Not Available [facility] 2 22:26:25 Prediabe harpreet 892044996 Active 2019 Problem Code: R73.03; Problem Code Type: ICD-10; Jacquelin York APRN [address] [place], [address] , [employer] 5 10:48:42 Trochant mayur bursitis of left hip 76823112507 9103 Completed 202012/27/2021 Not Available [facility] 2 22:26:24 General examinat ion of patient Active 2020 Not Available [facility] 2 22:26:26 Body mass index 30+ - obesity 417952697 Active 2020 Problem Code: Z68.36; Problem Code Type: ICD-10; Not Available [facility] 2 22:26:27 Acute left otitis media 310767171 Active 2024 Jacquelin York APRN [address] [place] [address], [address] , [employer] 17:43:39 Acute otitis externa 40771296 Active 2024 Jacquelin York APRN [address] [place] [address], [phone] , [employer] 17:43:47 Peripher al vascular disease 710260126 Active 2024 Jacquelin York APRN [address] [place] [address], [address] , [employer] 11:32:44 Eczema of external auditory canal 84419360 Active 2024 Jacquelin York APRN [address] [place] [address], [address] , [employer] 11:37:29 Disorder of right sciatic nerve 17233281791 9102 Active 2024 Jacquelin York APRN [address] [place] [address], [address] , [employer] 17:02:20 Low back pain 214117329 Active 2024 Problem Code: M54.5; Problem Code Type: ICD-10; Jacquelin York APRN [address] [place] [address], [address] , [employer] 14:47:30 Notes:Some problems listed i n Document: #[id number] could not be added to this patient's chart. Please review this document and add these problems to the patient's chart manually as needed. Problem Notes None recorded. Procedures Surgical History Date Name Laterality Status Provider Name and Address Organization Details Recorded Time 3 I&D completed Jacquelin York APRN [address] [place] [address], [phone], [employer] 08/19/2022 11:49:50 cataract surgery completed Not Available [facility] 03/08/2022 22:56:11 Imaging Results None recorded. [...] Updated DateTime 5 157.48 cm 36.6 kg/m2 12252.4 7 g 98.3 [degF] 56 /min 93 % 93 % 165/83 mm[Hg] 154/78 mm[Hg] 132/65 mm[Hg] [employer] 5 16:50:34 Date Recorded Body height Body mass index (BMI) Body weight Body temperature Heart rate Oxygen saturation Oxygen saturation in Arterial blood by Pulse oximetry Systolic And Diastolic Systolic And Diastolic Systolic And Diastolic Provider Name and Address Organization Details Last Updated DateTime 5 157.48 cm 36.6 kg/m2 55889.4 7 g 97.9 [degF] 52 /min 93 % 93 % 161/51 mm[Hg] 154/79 mm[Hg] 132/74 mm[Hg] [employer] 5 14:41:50 Social History Question Answer Notes LastModified by Organizat ion Details LastModified Time Tobacco Smoking Status Never Smoker SocialHis toryQuest ion: 'Tobacco/ Alcohol/S upplement s'; SocialHis toryRespo nse: 'Never Smoker'; Not Available [facility] 03/08/2022 22:59:32 Do You Have An Advance [...] Do You Have A Medical Power Of [employer]? No Information not available 01/23/2023 What Was [...] recombinant 4 completed Jacquelin York APRN [address] [place], [address], [employer] 07/30/2023 16:11:26 Influenza, split virus, quadrivalent, PF 9 completed Not Available [facility] 03/08/2022 23:27:31 COVID-19 vaccine, vector-nr, rS-Ad26, PF, 0.5 mL 1 completed ARACELY MYNEAR null, [employer]. 08/19/2022 11:00:01 pneumococcal polysaccharide PPV23 0 completed Not Available [facility] 03/08/2022 23:27:35 Influenza, split virus, quadrivalent, preservative 0 completed Not Available [facility] 03/08/2022 23:27:36 zoster recombinant 4 completed Jacquelin York APRN [address] [place], [address], [employer]. 02/18/2024 14:54:52 Influenza, high-dose, trivalent, PF 5 completed Jacquelin York APRN [address] [place], [address], [employer]. 08/20/2024 12:30:49 Influenza, split virus, quadrivalent, PF 1 completed ARACELY MYNEAR null, [employer] 08/19/2022 11:00:01 Influenza, split virus, quadrivalent, PF 2 completed ARACELY MYNEAR null, [employer] 08/19/2022 11:00:01 Influenza, split virus, quadrivalent, PF 3 completed Not Available [facility] 05/12/2025 14:26:10 Influenza, split virus, trivalent, PF 5 completed Not Available [facility] 05/12/2025 14:26:10 Past Encounters Encounter ID Performer Location Encounter Start Date Encounter Closed Date Diagnosis/Indication Diagnosis SNOMED-CT Code Diagnosis ICD10 Code Diagnosis IMO Codes Diagnosis Note [id number] Jacquelin York [address] [address] 04/25/2025 10:57:53 04/25/2025 11:53:46 Peripheral vascular disease 609482009 I73.9 43656 Eczema of external auditory canal 30718980 H60.542 23493566 [id number] Jacquelin York [address] [address] 05/07/2025 16:32:49 05/07/2025 17:20:13 Disorder of right sciatic nerve 9989065835 61694 M54.31 [id number] [place] presented with severe right lower [...] d if no improvemen t by Monday. Health Concerns Section Related Observation LastModified by Organization Detai ls LastModified Time None Recorded Concern Status LastModified by Organization Details LastModified Time None Recorded Payers Encounter Date Sequence Insurance Name Policy Number Policy Hutchins Covered Member ID Hutchins Member ID Guarantor Name 05/07/2025 1 [place] [id number] [place] 05/07/2025 2 AAR (MEDICARE SUPPLEMENT) [place] [id number] [place] Notes Date Note Type Note Provider Name and Address Organization Details Recorded Time 05/07/2025 text/html ROS as noted in the HPI [...] working this week. Jacquelin York APRN [address] [place], [address], [employer] [place]. 05/15/2025 16:22:04 05/12/2025 text/html ROS as noted in the [...] injury or issues. Jacquelin York APRN [address] [facility], [place], [address], [employer] 05/12/2025 15:28:51 OBGyn Episode No OBEpisode recorded.
== END 2025-05-16 23:59 | disposition home or self-care (01) ==
LOC: RAD 07:55
PROVIDERS: PCP Nurse Practitioner Family; Visit Provider Nurse Practitioner Family
DX: M47.26 Other spondylosis with radiculopathy, lumbar region (principal); M47.27 Other spondylosis with radiculopathy, lumbosacral region
CPT/HCPCS: 72148

== ENCOUNTER 2025-07-01 13:00 | Outpatient (RCR) | payer MEDICARE, SELFPAY | END 2025-07-01 23:59 | disposition home or self-care (01) | LOC: PT.CARL 13:00 | PROVIDERS: PCP Nurse Practitioner Family; Visit Provider Nurse Practitioner Family | DX: M48.07 Spinal stenosis, lumbosacral region (principal) | CPT/HCPCS: 97110; 97112; 97140; 97161 ==